=== PATIENT | female | born 1975 | race American Indian/Alaskan Native ===

== ENCOUNTER 2019-04-25 10:14 | Emergency (ER) | payer BC ==
[2019-04-25 11:17] VITALS: BP 132/84
--- NOTE | 2019-04-25 11:19 | Emergency Department Report ---
Chief Complaint: Earache Stated Complaint: SEVERER HEADACHE Time Seen by Provider: 04/25/19 11:14 - HPI History of Present Illness: pt presents with right ear pain that began a month ago states she has had effusion in that ear previously diagnosed by urgent care has not seen an ENT for this complaint no drainage no fever PMHx asthma, HTN no allergies to meds LNMP: end march VSS on exam: non toxic appearing, no acute distress bilateral TMs and canals are normal no TTP over the mastoid process no signs of sialoadenitis pt is presenting with a non medical emergency at this time medical screening examination performed and there is no threat to life or limb at this time will refer pt to a ENT doctor as she has had this for a month pt given strict return precautions - Exam Vital Signs: Vital Signs 04/25/19 11:15 Temperature 98.6 F Pulse Rate 87 Respiratory 20 Rate Blood Pressure 132/84 O2 Sat by Pulse 100 Oximetry MSE screening note: Focused history and physical exam performed. ED Disposition for MSE Clinical Impression: Otalgia Qualifiers: Laterality: right Qualified Code(s): H92.01 - Otalgia, right ear Disposition: Z-07 MED SCREENING EXAM-LEFT Is pt being admited?: No Does the pt Need Aspirin: No Condition: Stable Instructions: Earache (ED) Additional Instructions: may take tylenol or ibuprofen over the counter as needed for ear pain. may use over the counter ear relief drops. follow up with an ear, nose, and throat doctor in the next 2-3 days. return to the emergency room for any new or worseni ng symptoms. Referrals: REBECCA MORAN MD [Staff Physician] - 2-3 Days TRINH JACKSON MD [Staff Physician] - 2-3 Days Time of Disposition: 11:26 Print Language: PASHTO
== END 2019-04-25 11:39 | disposition left against medical advice (07) ==
LOC: ED 10:14
DX: H92.01 Otalgia, right ear (principal); I10 Essential (primary) hypertension; J45.909 Unspecified asthma, uncomplicated